=== PATIENT | female | born 1980 | race Caucasian/White ===

== ENCOUNTER 2023-01-17 18:00 | Inpatient (IN) | payer OTHER ==
[2023-01-17 22:36] VITALS: BMI 30.5
[2023-01-17] MEDS ORDERED: Tranexamic Acid 1,000 MG/10 ML VIAL IVP PRN (22:55)
[2023-01-17] MEDS ORDERED: Lidocaine 1% (PF) 30 ML VIAL SC PRN (22:55)
[2023-01-17] MEDS ORDERED: Ondansetron PF 4 MG/2 ML Vial IVP PRN (22:55)
[2023-01-17] MEDS ORDERED: Misoprostol 200 MCG TAB PR PRN (22:55)
[2023-01-17] MEDS ORDERED: Promethazine HCl 25 MG/ML VIAL IM PRN (22:55)
[2023-01-17] MEDS ORDERED: Diphenoxylate HCl/Atropine Tablet PO PRN ×2 (22:55)
[2023-01-17] MEDS ORDERED: HYDROcodone/Acetaminophen 5/325 mg Tablet PO PRN ×2 (22:55)
[2023-01-17] MEDS ORDERED: Acetaminophen 500 MG TAB PO PRN (22:55)
[2023-01-17] MEDS ORDERED: Butorphanol Tartrate 1 MG/ML VIAL SLOW IVP PRN (22:55)
[2023-01-17] MEDS ORDERED: Carboprost 250 MCG/ML AMP IM PRN (22:55)
[2023-01-17] MEDS ORDERED: Methylergonovine 0.2 MG/ML VIAL IM PRN (22:55)
[2023-01-17] MEDS ORDERED: hydrALAZINE 20 MG/ML VIAL SLOW IVP PRN (22:55)
[2023-01-17] MEDS ORDERED: fentaNYL 50 mcg/mL 1 mL Vial SLOW IVP PRN (22:55)
[2023-01-17] MEDS ORDERED: NS w/ Oxytocin 30 units 500 ML IV SCH ×3 (23:00)
[2023-01-18] MEDS ORDERED: Zolpidem Tartrate 5 MG TAB PO SCH
[2023-01-18] MEDS: Misoprostol 100 MCG TAB VAG SCH ×5 (00:06→18:07)
[2023-01-18 00:13] LABS: Hemoglobin 12.1 g/dL (12.0-15.5); Mean Corpuscular Hemoglobin 33.6 pg (27.0-33.0); Mean Corpuscular Volume 96.1 fl (81.6-98.3); Mean Platelet Volume 11.6 fl (7.4-10.4); Platelet Count 207 10x3/uL (150-450); RBC Distribution Width 13.7 % (11.5-14.5); White Blood Cell (WBC) Count 5.8 10x3/uL (3.5-10.5)
[2023-01-18 01:22] LABS: HBSAg Index 0.17 S/CO (0-0.99); Hep B Surf Ag - L&D Non-Reactive S/CO (NonReactive)
[2023-01-18] MEDS: Lactated Ringer's 1,000 ML IV SCH ×3 (06:14→17:39)
[2023-01-18] MEDS ORDERED: fentaNYL/Ropivacaine Epidural 100 ML ONE (11:03)
[2023-01-18] MEDS ORDERED: Bisacodyl 10 MG SUPP PR PRN (17:33)
[2023-01-18] MEDS ORDERED: hydrALAZINE 20 MG/ML VIAL SLOW IVP PRN (17:33)
[2023-01-18] MEDS ORDERED: Boostrix 0.5 ML (Tdap) VIAL (>/=7 yrs of age) IM ONE (17:33)
[2023-01-18] MEDS ORDERED: Lanolin Ointment 7 GM TUBE TOP PRN (17:33)
[2023-01-18] MEDS ORDERED: diphenhydrAMINE 25 MG CAP PO PRN (17:33)
[2023-01-18] MEDS ORDERED: Promethazine HCl 25 MG/ML VIAL IM PRN (17:33)
[2023-01-18] MEDS ORDERED: Measles/Mumps/Rubella 10 MCG/0.5 ML VIAL SC ONE (17:33)
[2023-01-18] MEDS ORDERED: Benzocaine-Menthol 82.5 ML CAN TOP PRN (17:33)
[2023-01-18] MEDS ORDERED: Preparation H Ointment 28 GM TUBE PR PRN (17:33)
[2023-01-18] MEDS ORDERED: Zolpidem Tartrate 5 MG TAB PO PRN (17:33)
[2023-01-18] MEDS ORDERED: NS w/ Oxytocin 30 units 500 ML IV SCH (17:33)
[2023-01-18] MEDS ORDERED: Misoprostol 200 MCG TAB VAG PRN (17:33)
[2023-01-18] MEDS ORDERED: Varicella virus, LIVE 0.5 ML VIAL SC ONE (17:33)
[2023-01-18] MEDS ORDERED: Milk Of Magnesia 30 ML UDCUP PO PRN (17:33)
[2023-01-18] MEDS ORDERED: Ondansetron PF 4 MG/2 ML Vial IVP PRN (17:33)
[2023-01-18] MEDS: Docusate 100 MG CAP PO SCH (23:16)
[2023-01-18] MEDS: HYDROcodone/Acetaminophen 5/325 mg Tablet PO PRN (23:58)
[2023-01-19 03:05] LABS: Hemoglobin 11.9 g/dL (12.0-15.5); Mean Corpuscular HGB CONC 34.8 g/dL (32.0-36.0); Mean Corpuscular Hemoglobin 33.2 pg (27.0-33.0); Mean Corpuscular Volume 95.5 fl (81.6-98.3); Mean Platelet Volume 11.5 fl (7.4-10.4); Platelet Count 188 10x3/uL (150-450); RBC Distribution Width 13.5 % (11.5-14.5); Red Blood Cell (RBC) Count 3.58 10x6/uL (3.90-5.03); White Blood Cell (WBC) Count 8.8 10x3/uL (3.5-10.5)
[2023-01-19] MEDS: HYDROcodone/Acetaminophen 5/325 mg Tablet PO PRN ×4 (04:39→22:12)
[2023-01-19] MEDS: Ferrous Sulfate 325 MG TAB PO SCH ×2 (08:46→14:50)
[2023-01-19] MEDS: Docusate 100 MG CAP PO SCH ×2 (08:47→20:37)
[2023-01-19] MEDS: Prenatal Vitamin 1 TAB PO SCH (08:47)
[2023-01-19 13:56] LABS: Syphilis Antibody Nonreactive (Nonreactive); Syphilis Antibody Index 0.05 S/CO (<1.00 Non-Reactive)
[2023-01-20] MEDS: HYDROcodone/Acetaminophen 5/325 mg Tablet PO PRN ×2 (05:39→12:03)
[2023-01-20] MEDS: Ferrous Sulfate 325 MG TAB PO SCH (07:24)
[2023-01-20] MEDS: Docusate 100 MG CAP PO SCH (07:40)
[2023-01-20] MEDS: Prenatal Vitamin 1 TAB PO SCH (07:41)
[2023-01-20 08:07] VITALS: BP 120/77; TEMP 97.9
== END 2023-01-20 13:15 | disposition home or self-care (01) | DRG 807 ==
LOC: CSHLD 21:43 → CSHPP 01-18 16:55
PROVIDERS: ADMIT Obstetrics & Gynecology; ATTEND Obstetrics & Gynecology
PROC: 10E0XZZ Delivery of Products of Conception, External Approach (ICD-10-PCS; principal; 2023-01-18)
DX: O10.92 Unspecified pre-existing hypertension complicating childbirth (principal); Z37.0 Single live birth; Z3A.38 38 weeks gestation of pregnancy; Z88.1 Allergy status to other antibiotic agents; Z88.8 Allergy status to other drugs, medicaments and biological substances
CPT/HCPCS: 36415; 51702; 85027; 86780; 86850; 86900; 86901; 87340